=== PATIENT | male | born 1995 | race Caucasian/White ===

== ENCOUNTER 2022-08-18 13:21 | Inpatient (IN) ==
[2022-08-18 13:37] LABS: Basophils # 0.1 10*3/uL (0.0-0.2); Basophils % 0.6 % (0.0-0.8); Eosinophils # 0.7 10*3/uL (0.0-0.87); Eosinophils % 5.5 % (0.00-10.9); Hemoglobin 14.9 GM/DL (14.0-18.0); Immature Granulocytes % 1.8 %; Immature Granulocytes Absolute 0.24 #; Lymphocytes % 22.9 % (21.2-54.2); Mean Corpuscular HGB Conc 34.7 GM/DL (32-36); Mean Corpuscular Volume 86.2 FL (87-102); Monocytes % 7.7 % (1.7-12.7); Neutrophils % 61.5 % (38.7-73.9); Red Blood Count 4.99 MC/CUMM (3.8-5.5); Red Cell Distribution Width 12.5 % (9.3-17.3)
[2022-08-18 13:43] LABS: Platelet Count 2 T/CUMM (130-400)
[2022-08-18 13:47] LABS: INR 0.9; PT Patient Result 10.2 SECS (10.1-12.1)
[2022-08-18] MEDS ORDERED: predniSONE 20 MG TABLET PO STA (13:49)
[2022-08-18] MEDS ORDERED: IMMUNE GLOBULIN 10% 40 GM in PREMIX 1 EACH IV ONE (13:49)
[2022-08-18 13:58] LABS: Albumin 3.6 G/DL (3.4-5.0); Bilirubin,Total 0.4 MG/DL (0.20-1.00); Calcium 9.4 MG/DL (8.5-10.1); Potassium 3.6 MMOL/L (3.5-5.1); Total Protein 8.3 G/DL (6.4-8.2)
[2022-08-18] MEDS ORDERED: ALBUTEROL 2.5 MG/3 ML NEB RESP TX PRN (14:25)
[2022-08-18] MEDS ORDERED: ONDANSETRON 4 MG/2 ML VIAL IV PRN (14:25)
[2022-08-18] MEDS ORDERED: SODIUM CHLORIDE 0.9% 1,000 ML IV PRN (15:05)
[2022-08-18] MEDS ORDERED: ACETAMINOPHEN 500 MG TABLET PO PRN (15:10)
[2022-08-18] MEDS: PANTOPRAZOLE 40 MG TABLET PO SCH (20:55)
[2022-08-18] MEDS: CIPROFLOXACIN 250 MG TABLET PO SCH (20:55)
[2022-08-18] MEDS: predniSONE 20 MG TABLET PO SCH (20:55)
[2022-08-19 02:05] LABS: Basophils # 0.1 10*3/uL (0.0-0.2); Basophils % 0.4 % (0.0-0.8); Eosinophils % 0.2 % (0.00-10.9); Hematocrit 39.4 VOL% (42.0-52.0); Hemoglobin 13.8 GM/DL (14.0-18.0); Immature Granulocytes % 4.8 %; Immature Granulocytes Absolute 0.64 #; Lymphocytes # 1.5 10*3/uL (1.4-4.0); Lymphocytes % 11.7 % (21.2-54.2); Mean Corpuscular Volume 86.8 FL (87-102); Mean Platelet Volume 10.6 FL (9.6-12.0); Monocytes # 0.6 10*3/uL (0.11-0.8); Monocytes % 4.6 % (1.7-12.7); Neutrophils % 78.3 % (38.7-73.9); Red Blood Count 4.54 MC/CUMM (3.8-5.5); Red Cell Distribution Width 12.1 % (9.3-17.3); White Blood Count 13.2 T/CUMM (4-12)
[2022-08-19 02:10] LABS: Platelet Count 16 T/CUMM (130-400)
[2022-08-19] MEDS ORDERED: SODIUM CHLORIDE 0.9% 1,000 ML IV PRN (02:23)
[2022-08-19 02:28] LABS: Lymphocytes 15 % (20-55); Total Cells Counted 100
[2022-08-19 02:29] LABS: Platelet Estimate Decreased
[2022-08-19 04:49] LABS: Basophils # 0.1 10*3/uL (0.0-0.2); Basophils % 0.4 % (0.0-0.8); Eosinophils % 0.1 % (0.00-10.9); Hematocrit 41.7 VOL% (42.0-52.0); Hemoglobin 14.3 GM/DL (14.0-18.0); Immature Granulocytes % 5.1 %; Lymphocytes # 1.6 10*3/uL (1.4-4.0); Lymphocytes % 11.4 % (21.2-54.2); Mean Corpuscular HGB Conc 34.3 GM/DL (32-36); Mean Corpuscular Volume 87.1 FL (87-102); Mean Platelet Volume 11.7 FL (9.6-12.0); Monocytes # 0.5 10*3/uL (0.11-0.8); Monocytes % 3.4 % (1.7-12.7); Neutrophils % 79.6 % (38.7-73.9); Red Blood Count 4.79 MC/CUMM (3.8-5.5); Red Cell Distribution Width 12.3 % (9.3-17.3); White Blood Count 13.9 T/CUMM (4-12)
[2022-08-19 04:56] LABS: Platelet Count 26 T/CUMM (130-400)
[2022-08-19 05:10] LABS: Band Neutrophils 5 % (0-10); Eosinophils 1 % (0-10); Hypochromia Slight; Lymphocytes 10 % (20-55); Microcytosis Slight; Total Cells Counted 100
[2022-08-19 05:11] LABS: Platelet Estimate Decreased
[2022-08-19 05:14] LABS: Alanine Aminotransferase 38 U/L (16-61); Albumin 3.2 G/DL (3.4-5.0); Alkaline Phosphatase 67 U/L (45-117); Aspartate Amino Transferase 17 U/L (0-37); Bilirubin,Total < 0.39 MG/DL (0.20-1.00); Blood Urea Nitrogen 11 MG/DL (7-18); Calcium 8.7 MG/DL (8.5-10.1); Carbon Dioxide 21 MMOL/L (21-32); Chloride 106 MMOL/L (98-107); Glucose 162 MG/DL (74-106); Osmolality,Calculated 272.1 MOS/KG (273-304); Potassium 4.6 MMOL/L (3.5-5.1); Sodium 135 MMOL/L (136-145); Total Protein 8.7 G/DL (6.4-8.2)
[2022-08-19] MEDS: CIPROFLOXACIN 250 MG TABLET PO SCH ×2 (08:20→21:18)
[2022-08-19] MEDS: PANTOPRAZOLE 40 MG TABLET PO SCH ×2 (08:20→21:18)
[2022-08-19] MEDS: predniSONE 20 MG TABLET PO SCH (08:20)
[2022-08-19 08:51] LABS: PT Patient Result 10.9 SECS (10.1-12.1); Partial Thromboplastin Time 25.9 SECS (23.7-32.9)
[2022-08-19 09:57] LABS: HIV Antigen/Antibody Result Nonreactive (Nonreactive)
[2022-08-19 09:59] LABS: Hepatitis B Core IgM Quant 0.09 Index; Hepatitis B Surface Ag Quant < 0.10 Index; Hepatitis B Surface Ag Result Non-Reactive (NonReactive); Hepatitis C Virus Ab Quant 0.07 Index; Hepatitis C Virus Ab Result Non-Reactive (NonReactive)
[2022-08-19 18:09] LABS: Basophils # 0.1 10*3/uL (0.0-0.2); Basophils % 0.2 % (0.0-0.8); Eosinophils % 0.1 % (0.00-10.9); Hematocrit 37.6 VOL% (42.0-52.0); Hemoglobin 13.1 GM/DL (14.0-18.0); Immature Granulocytes % 5.3 %; Immature Granulocytes Absolute 1.12 #; Lymphocytes % 9.5 % (21.2-54.2); Mean Corpuscular HGB Conc 34.8 GM/DL (32-36); Mean Platelet Volume 10.3 FL (9.6-12.0); Neutrophils % 79.9 % (38.7-73.9); Red Blood Count 4.32 MC/CUMM (3.8-5.5); Red Cell Distribution Width 12.2 % (9.3-17.3)
[2022-08-19 18:12] LABS: Platelet Count 15 T/CUMM (130-400)
[2022-08-19] MEDS ORDERED: IMMUNE GLOBULIN IV ONE (20:00)
[2022-08-19 20:01] LABS: Band Neutrophils 1 % (0-10); Lymphocytes 13 % (20-55); Total Cells Counted 100
[2022-08-19 20:02] LABS: Platelet Estimate Decreased
[2022-08-19] MEDS: methylPREDNISolone SOD SUC 125 MG/2 ML VIAL IV SCH (21:19)
[2022-08-20 04:56] LABS: Basophils # 0.1 10*3/uL (0.0-0.2); Basophils % 0.3 % (0.0-0.8); Eosinophils % 0.1 % (0.00-10.9); Hematocrit 37.6 VOL% (42.0-52.0); Hemoglobin 12.9 GM/DL (14.0-18.0); Immature Granulocytes % 6.6 %; Immature Granulocytes Absolute 1.18 #; Lymphocytes % 11.2 % (21.2-54.2); Mean Corpuscular HGB Conc 34.3 GM/DL (32-36); Mean Corpuscular Volume 87.9 FL (87-102); Monocytes # 0.9 10*3/uL (0.11-0.8); Neutrophils % 76.8 % (38.7-73.9); Red Blood Count 4.28 MC/CUMM (3.8-5.5); Red Cell Distribution Width 12.3 % (9.3-17.3); White Blood Count 17.9 T/CUMM (4-12)
[2022-08-20 05:01] LABS: Platelet Count 5 T/CUMM (130-400)
[2022-08-20 05:18] LABS: Band Neutrophils 1 % (0-10); Lymphocytes 14 % (20-55); Platelet Estimate Decreased; Total Cells Counted 100
[2022-08-20 05:19] LABS: Hypochromia Slight; Microcytosis Slight
[2022-08-20 05:27] LABS: Alanine Aminotransferase 48 U/L (16-61); Alkaline Phosphatase 71 U/L (45-117); Aspartate Amino Transferase 22 U/L (0-37); Bilirubin,Total < 0.39 MG/DL (0.20-1.00); Blood Urea Nitrogen 12 MG/DL (7-18); Calcium 8.5 MG/DL (8.5-10.1); Carbon Dioxide 25 MMOL/L (21-32); Chloride 107 MMOL/L (98-107); Glucose 182 MG/DL (74-106); Osmolality,Calculated 281.5 MOS/KG (273-304); Potassium 4.3 MMOL/L (3.5-5.1); Sodium 139 MMOL/L (136-145); Total Protein 8.5 G/DL (6.4-8.2)
[2022-08-20] MEDS: PANTOPRAZOLE 40 MG TABLET PO SCH ×2 (08:00→20:36)
[2022-08-20] MEDS: methylPREDNISolone SOD SUC 125 MG/2 ML VIAL IV SCH ×2 (08:00→20:36)
[2022-08-20] MEDS: CIPROFLOXACIN 250 MG TABLET PO SCH ×2 (08:00→20:36)
[2022-08-20] MEDS ORDERED: ALPRAZolam 0.5 MG TABLET PO PRN (08:05)
[2022-08-20] MEDS ORDERED: SODIUM CHLORIDE 0.9% 1,000 ML IV PRN (08:55)
[2022-08-20] MEDS ORDERED: IMMUNE GLOBULIN IV ONE ×2 (09:30)
[2022-08-20] MEDS ORDERED: [UNRECOGNIZED DRUG - OTHER] IV ONE (09:30)
[2022-08-20 10:30] LABS: Albumin (SPE) 4.3 G/DL (3.2-5.3); Albumin (SPE) Rel % 48.2 %; Alpha 1 (SPE) 0.2 G/DL (0.1-0.4); Alpha 1 (SPE) Rel % 2.4 %; Alpha 2 (SPE) 0.9 G/DL (0.4-1.0); Alpha 2 (SPE) Rel % 9.9 %; Beta (SPE) 0.7 G/DL (0.5-1.1); Gamma (SPE) 2.8 G/DL (0.7-1.7); Gamma (SPE) Rel % 31.5 %
[2022-08-20] MEDS ORDERED: methylPREDNISolone SOD SUC 40 MG/1 ML VIAL IV ONE (11:00)
[2022-08-21 05:47] LABS: Basophils # 0.1 10*3/uL (0.0-0.2); Basophils % 0.5 % (0.0-0.8); Eosinophils % 0.1 % (0.00-10.9); Hematocrit 37.6 VOL% (42.0-52.0); Hemoglobin 12.9 GM/DL (14.0-18.0); Immature Granulocytes % 12.3 %; Immature Granulocytes Absolute 1.86 #; Lymphocytes # 2.2 10*3/uL (1.4-4.0); Lymphocytes % 14.3 % (21.2-54.2); Mean Corpuscular HGB Conc 34.3 GM/DL (32-36); Mean Corpuscular Volume 87.9 FL (87-102); Mean Platelet Volume 12.4 FL (9.6-12.0); Monocytes # 0.9 10*3/uL (0.11-0.8); Monocytes % 6.1 % (1.7-12.7); Neutrophils % 66.7 % (38.7-73.9); Red Blood Count 4.28 MC/CUMM (3.8-5.5); Red Cell Distribution Width 12.3 % (9.3-17.3); White Blood Count 15.2 T/CUMM (4-12)
[2022-08-21 06:24] LABS: Platelet Count 35 T/CUMM (130-400)
[2022-08-21 06:30] LABS: Band Neutrophils 1 % (0-10); Hypochromia 1+; Lymphocytes 15 % (20-55); Microcytosis 1+; Platelet Estimate Decreased; Total Cells Counted 100
[2022-08-21] MEDS: CIPROFLOXACIN 250 MG TABLET PO SCH ×2 (08:51→21:04)
[2022-08-21] MEDS: methylPREDNISolone SOD SUC 125 MG/2 ML VIAL IV SCH ×2 (08:51→21:04)
[2022-08-21] MEDS: PANTOPRAZOLE 40 MG TABLET PO SCH ×2 (08:51→21:04)
[2022-08-21 15:58] VITALS: BP 147/82
[2022-08-22 04:44] LABS: Basophils # 0.1 10*3/uL (0.0-0.2); Basophils % 0.4 % (0.0-0.8); Hematocrit 40.8 VOL% (42.0-52.0); Hemoglobin 13.9 GM/DL (14.0-18.0); Immature Granulocytes % 11.2 %; Immature Granulocytes Absolute 1.67 #; Lymphocytes # 2.3 10*3/uL (1.4-4.0); Lymphocytes % 15.7 % (21.2-54.2); Mean Corpuscular HGB Conc 34.1 GM/DL (32-36); Mean Platelet Volume 12.1 FL (9.6-12.0); Monocytes # 0.9 10*3/uL (0.11-0.8); Monocytes % 6.3 % (1.7-12.7); NRBC # 0.02 10*3/uL; Neutrophils % 66.4 % (38.7-73.9); Red Blood Count 4.69 MC/CUMM (3.8-5.5); Red Cell Distribution Width 12.4 % (9.3-17.3); White Blood Count 14.9 T/CUMM (4-12)
[2022-08-22 04:46] LABS: Platelet Count 32 T/CUMM (130-400)
[2022-08-22 05:23] LABS: Band Neutrophils 1 % (0-10); Lymphocytes 20 % (20-55); Nucleated Red Blood Cells 1 /100 WBC (0-5); Platelet Estimate Decreased; Total Cells Counted 100
[2022-08-22] MEDS ORDERED: predniSONE 20 MG TABLET PO SCH (09:00)
[2022-08-22] MEDS: PANTOPRAZOLE 40 MG TABLET PO SCH (09:17)
[2022-08-22] MEDS: CIPROFLOXACIN 250 MG TABLET PO SCH (09:17)
== END 2022-08-22 11:30 | disposition home or self-care (01) | DRG 813 ==
LOC: N.ED 13:21 → N.EDINP 14:25 → N.CC 14:57
PROVIDERS: ADMIT Internal Medicine; ATTEND Internal Medicine